=== PATIENT | male | born 2000 | race Caucasian/White ===

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

== ENCOUNTER 2022-02-24 16:29 | Emergency (ER) | payer OTHER, SELFPAY ==
[2022-02-24 16:42] VITALS: BP 122/86; PULSE 108; RESP 18; TEMP 36.9; O2SAT 98; BMI 27.3
[2022-02-24 17:54] LABS: Influenza A - CEPHEID Flu A NEGATIVE (NEGATIVE); Influenza B - CEPHEID Flu B NEGATIVE (NEGATIVE); Respiratory Syncytial Virus Negative (Negative)
[2022-02-24 17:55] LABS: COVID-19 CEPHEID 4-PLEX PCR Negative (Negative)
--- NOTE | 2022-02-24 19:32 | ED_ITS ---
HPI - Abdominal Pain General Chief Complaint: Abdominal Pain Stated Complaint: ABD pain, Dizzy Time Seen by Provider: 02/24/22 19:16 Source: patient Mode of arrival: Ambulatory History of Present Illness HPI narrative: Patient brought in from home by father. Complains of onset of right inguinal pain yesterday at 12:00 p.m.. He was seen by outside facility Hospital at 7:00 p.m. and had IV contrast CT which showed normal appendix, diverticulosis without diverticulitis. Paper form results were brought here. Patient states pain has been constant. Does not radiate. It is midway in the inguinal crease. No nausea vomiting diarrhea no urinary complaints no hematuria no dysuria. No prior abdominal surgical history Patient did have a fever. Today around noontime and 230 p.m. he had fever. He did take fever medication but none since then. He still does have an appetite. Related Data Allergies Allergy/AdvReac Type Severity Reaction Status Date / Time No Known Drug Allergies Allergy Verified 02/24/22 16:41 Review of Systems Review of Systems Narrative: GENERAL: negative chills, fatigue, malaise, positive fever, sweats. HEENT: negative sinus pain, ear pain, sore throat RESPIRATORY: negative dyspnea, cough CARDIOVASCULAR: negative chest pain, palpitations GASTROINTESTINAL: negative nausea, vomiting, positive abdominal pain : negative dysuria, frequency, hematuria MUSCULOSKELETAL: negative muscle or bony pain SKIN: negative rash, skin lesions NEUROLOGIC: negative weakness, numbness ROS Unobtainable: All systems reviewed & are unremarkable except as noted in HPI and below Patient History Medical History (Updated 02/24/22 @ 22:52 by Jose Antonio Grimm MD) Seizure Social History Smoking Status: Never smoker Smoking Status: Never smoker Substance Use Type: does not use Exam Narrative Exam Narrative: GENERAL: in no distress, not toxic not dyspneic HEAD: Normocephalic. EYES: Pupils equal round No scleral icterus. ENT: Mucous membranes moist. NECK: Trachea midline. CARDIOVASCULAR: Regular rate and rhythm without murmurs RESPIRATORY: Clear to auscultation. Breath sounds equal bilaterally. No wheezes, rales, or rhonchi. GASTROINTESTINAL: Abdomen soft, McBurney point nontender. No rebound tenderness no peritoneal signs. No pain with psoas maneuver. No pain out of proportion to exam. There is reproducible mid right inguinal crease tenderness but no palpable mass or lymphadenopathy, no overlying erythema or induration EXTREMITIES: No gross deformities. BACK: No flank tenderness. NEURO: AOx4. SKIN: Warm and dry PSYCH: Not anxious, is cooperative Initial Vital Signs Initial Vital Signs: Vital Signs Temperature 98.5 F 02/24/22 16:42 Pulse Rate 108 H 02/24/22 16:42 Respiratory Rate 18 02/24/22 16:42 Blood Pressure 122/86 02/24/22 16:42 Pulse Oximetry 98 02/24/22 16:42 Oxygen Delivery Method 02/24/22 16:42 Course Orders Ordered: ED Orders 02/24/22 20:20 Complete Blood Count AUTO DIFF Stat Comprehensive Metabolic Panel Stat 02/24/22 21:20 CT abdomen pelvis w con Stat Discontinued Medications Sodium Chloride (Normal Saline 0.9%) 1,000 mls @ 1,000 mls/hr IV BOLUS ONE Stop: 02/24/22 20:30 Last Infusion: 02/24/22 21:43 Dose: 0 mls/hr Documented By: Admin: 02/24/22 20:39 Dose: 1,000 mls/hr Documented By: CARISSA Vital Signs Vital signs: Vital Signs - 8 hr 02/24/22 16:42 Temperature 98.5 F Pulse Rate 108 H Respiratory Rate 18 Blood Pressure 122/86 Pulse Oximetry 98 Oxygen Delivery Method Room Air MDM - Abdominal Pain Lab Data Result diagrams: 02/24/22 20:20 02/24/22 20:20 Labs: Lab Results 02/24/22 02/24/22 02/24/22 Range/Units 16:48 20:20 20:20 WBC 6.4 (4.5-11.0) X10^3/uL RBC 4.85 (4.5-5.9) X10^6/uL Hgb 14.9 (13.5-17.5) g/dL Hct 43.3 (41-53) % MCV 89.3 (80-100) fL MCH 30.7 (26-34) PG MCHC 34.4 (30-36) % RDW 12.3 (11.6-14.8) % Plt Count 178 (150-400) X10^3/uL Neut % (Auto) 71.7 (50-75) % Lymph % (Auto) 16.0 L (25-40) % [place] % (Auto) 7.6 (3-14) % Eos % (Auto) 4.3 H (2-4) % Baso % (Auto) 0.4 (0-2) % Neut # (Auto) 4600 (9509-6151) /uL Lymph # (Auto) 1000 L (5369-3151) /uL [place] # (Auto) 500 (0-900) /uL Eos # (Auto) 300 (0-450) /uL Baso # (Auto) 0 (0-100) /uL Sodium 138 (137-145) mmol/L Potassium 3.7 (3.4-5.1) mmol/L Chloride 104 (98-107) mmol/L Carbon Dioxide 21 L (22-32) mmol/L BUN 7 L (9-20) mg/dL Creatinine 1.06 (0.66-1.25) mg/dL Estimated GFR > 60 (>60) mL/min BUN/Creatinine Ratio 6.6 (6-22) Glucose 83 (70-100) mg/dL Calcium 8.6 (8.4-10.2) mg/dL Total Bilirubin 0.6 (0.2-1.3) mg/dL AST 23 (17-59) IU/L ALT 31 (<50) IU/L Alkaline Phosphatase 108 (38-126) U/L Total Protein 7.2 (6.3-8.2) g/dL SARS-CoV-2 (PCR) Negative (Negative) Influenza A (RT-PCR) Flu a negative (NEGATIVE) Influenza B (RT-PCR) Flu b negative (NEGATIVE) RSV (PCR) Negative (Negative) Imaging Data CT scan - abdomen/pelvis: Radiologist's Impression: [address] [address] [address] Scan Report Signed Patient: Saurabh Peck MR#: [id number] : 2000 Acct:[id number] Age/Sex: 21 / M Date of Service: 02/24/22 Loc: ED Accession Number: [id number] ?? Procedure: CT abdomen pelvis w con Ordering Provider: Jose Antonio Grimm MD PROCEDURE:? CT ABDOMEN PELVIS W CON ? INDICATIONS:? IV contrast only/right lower quadrant pain ? TECHNIQUE:? After the administration of IV contrast, axial sections were acquired from the lung bases to the pubic symphysis.? Coronal and sagittal reformats were performed.? For radiation dose reduction, the following was used:? automated exposure control, adjustment of mA and/or kV according to patient size. ? COMPARISON:? None. ? FINDINGS:? Image quality:? Excellent.? ? Lung bases:? Unremarkable.? ? Heart:? Heart is normal in size. ? ? ABDOMEN: Liver:? No mass lesion. Gallbladder:? Within normal limits without calcified gallstones.? ? Biliary ducts:? No biliary ductal dilatation.? ? Pancreas:? Unremarkable.? ? Spleen:? Normal in size.? ? Adrenal Glands:? No adrenal nodules.? ? Kidneys and Ureters:? No hydronephrosis.? ? ? Stomach and Bowel:? Stomach, small bowel loops, and colon are normal in caliber and wall thickness.? The appendix is normal in appearance.? There is colonic diverticulosis without acute diverticulitis.? Peritoneum:? No abnormal intraperitoneal fluid.? No free air.? ? Ventral Wall: ? No hernia.? Abdominal Nodes:? No retroperitoneal or mesenteric adenopathy by size criteria.? Vessels:? Aorta and inferior vena cava are normal in size.? ? PELVIS: Pelvic Organs:? Unremarkable.? ? Bladder:? The urinary bladder is nondistended.? ? Pelvic Nodes: No enlarged lymph nodes.? Miscellaneous: No inguinal hernias are seen. ? ? ? Bones:? Visualized osseous structures demonstrate no suspicious focal lesions. ? IMPRESSION:? ? 1. No acute intra-abdominal abnormality.? Specifically, no evidence of acute appendicitis. ? 2. No evidence of obstructive uropathy.? ? ? Dictated by: Asa Marshall M.D. on 02/24/2022 at 22:38 ? ? Approved by: Asa Marshall M.D. on 02/24/2022 at 22:39 ? MDM Narrative Medical decision making narrative: Patient brought in from home by father. Complains of onset of right inguinal pain yesterday at 12:00 p.m.. He was seen by outside facility Hospital at 7:00 p.m. and had IV contrast CT which showed normal appendix, diverticulosis without diverticulitis. Paper form results were brought here. Patient states pain has been constant. Does not radiate. It is midway in the inguinal crease. No nausea vomiting diarrhea no urinary complaints no hematuria no dysuria. No prior abdominal surgical history After exam and history, CBC CMP urinalysis has been ordered. IV access as well. Viral swab was done and is negative. [facility] CC: Abdominal pain Complicating co-morbidities: None Data collected from: Patient and father Medical records reviewed: Discharge instructions as well as copy of CT results reviewed, paper form brought in by family, no acute appendicitis, diverticulosis without diverticulitis Differential considered: Includes but not limited to appendicitis/lymphadenopathy/hernia/diverticulitis/renal stone/UTI Exam documented above, pertinent findings include: Tender at mid right inguinal crease Lab Test results independently reviewed as above. Pertinent findings: CBC reviewed. No leukocytosis. CMP is reassuring as well Imaging studies independently reviewed: CT abdomen pelvis with IV contrast no acute process no appendicitis Treatments: IV fluids Re-evaluations: 9:21 p.m.. Reviewed CBC with patient and father. They do agree and would like repeat CT scan as possible yesterday's CT scan was then to early to show appendicitis. Discussion: I did review results with patient and father. Appropriate for discharge home at this time. Fever at this time unknown origin. However could be incidental viral infection. Patient did note he did strain his right groin when he fell the day before, 2 days ago and landed on his left shoulder. He states that his left shoulder hurt more in his right groin at this time he does not complain of left shoulder pain. However he could have strained his right groin when he slipped and fell, because he states he lost balance with his right foot. Return precautions reviewed with him and father. They did desire discharge home. Return precautions reviewed with him. Diagnosis: Inguinal pain Disposition: see below, along with detailed discharge instructions that have been reviewed with patient as well as indications for ED re-evaluation and additional outpatient follow up Discharge Plan Departure Patient Disposition: Home Clinical Impression: Rt inguinal pain Instructions: DI for Abdominal Pain-Adult Activity Restrictions/Additional Instructions: Call provided general surgery office tomorrow for office re-evaluation within a week. Return if worse if any questions or concerns. May continue ibuprofen or Tylenol for any fever or pain. Today's laboratory studies and CT scan imaging are reassuring. Your inguinal pain could be related to a developing hernia versus strained from your recent fall. Referrals: Mary Cadena MD [Physician] - Stand Alone Forms: Patient Portal/API
[2022-02-24] MEDS: SODIUM CHLORIDE 0.9% 1,000 ML 1000 ML IV (20:39)
[2022-02-24 20:54] LABS: Add Manual Diff / Slide Review NO; Basophils Absolute Auto 0 /uL (0-100); Basophils Percent Auto 0.4 % (0-2); Eosinophils Absolute Auto 300 /uL (0-450); Eosinophils Percent Auto 4.3 % (2-4); Hematocrit 43.3 % (41-53); Hemoglobin 14.9 g/dL (13.5-17.5); Lymphocytes Absolute Auto 1000 /uL (1100-4500); Mean Corpuscular HGB Conc 34.4 % (30-36); Mean Corpuscular Hemoglobin 30.7 PG (26-34); Mean Corpuscular Volume 89.3 fL (80-100); Monocytes Absolute Auto 500 /uL (0-900); Monocytes Percent Auto 7.6 % (3-14); Neutrophils Absolute Auto 4600 /uL (1500-7000); Neutrophils Percent Auto 71.7 % (50-75); Platelet Count 178 X10^3/uL (150-400); Red Blood Cell Count 4.85 X10^6/uL (4.5-5.9); Red Cell Distribution Width 12.3 % (11.6-14.8); White Blood Cell Count 6.4 X10^3/uL (4.5-11.0)
[2022-02-24 21:07] LABS: Alanine Aminotransferase 31 IU/L (<50); Alkaline Phosphatase 108 U/L (38-126); Aspartate Aminotransferase 23 IU/L (17-59); BUN Creatinine Ratio 6.6 (6-22); Bilirubin Total 0.6 mg/dL (0.2-1.3); Blood Urea Nitrogen 7 mg/dL (9-20); Calcium 8.6 mg/dL (8.4-10.2); Carbon Dioxide 21 mmol/L (22-32); Chloride 104 mmol/L (98-107); Estimated Glomerular Filt Rate > 60 mL/min (>60); Glucose 83 mg/dL (70-100); HEMOLYSIS < 15 (0-50); Potassium 3.7 mmol/L (3.4-5.1); Sodium 138 mmol/L (137-145); Total Protein 7.2 g/dL (6.3-8.2)
--- NOTE | 2022-02-24 21:20 | DI.CT.S_ITS ---
PROCEDURE: CT ABDOMEN PELVIS W CON INDICATIONS: IV contrast only/right lower quadrant pain TECHNIQUE: After the administration of IV contrast, axial sections were acquired from the lung bases to the pubic symphysis. Coronal and sagittal reformats were performed. For radiation dose reduction, the following was used: automated exposure control, adjustment of mA and/or kV according to patient size. COMPARISON: None. FINDINGS: Image quality: Excellent. Lung bases: Unremarkable. Heart: Heart is normal in size. ABDOMEN: Liver: No mass lesion. Gallbladder: Within normal limits without calcified gallstones. Biliary ducts: No biliary ductal dilatation. Pancreas: Unremarkable. Spleen: Normal in size. Adrenal Glands: No adrenal nodules. Kidneys and Ureters: No hydronephrosis. Stomach and Bowel: Stomach, small bowel loops, and colon are normal in caliber and wall thickness. The appendix is normal in appearance. There is colonic diverticulosis without acute diverticulitis. Peritoneum: No abnormal intraperitoneal fluid. No free air. Ventral Wall: No hernia. Abdominal Nodes: No retroperitoneal or mesenteric adenopathy by size criteria. Vessels: Aorta and inferior vena cava are normal in size. PELVIS: Pelvic Organs: Unremarkable. Bladder: The urinary bladder is nondistended. Pelvic Nodes: No enlarged lymph nodes. Miscellaneous: No inguinal hernias are seen. Bones: Visualized osseous structures demonstrate no suspicious focal lesions. IMPRESSION: 1. No acute intra-abdominal abnormality. Specifically, no evidence of acute appendicitis. 2. No evidence of obstructive uropathy. Dictated by: Asa Marshall M.D. on 02/24/2022 at 22:38 Approved by: Asa Marshall M.D. on 02/24/2022 at 22:39
[2022-02-26 16:24] LABS: Albumin 4.3 g/dL (3.5-5.0); Albumin Globulin Ratio 1.5 (1.0-2.8); Globulin 2.9 g/dL (1.7-4.1)
== END 2022-02-24 21:05 | disposition home or self-care (01) ==
PROVIDERS: Emergency Medicine; Emergency Provider Emergency Medicine
DX: R10.31 Right lower quadrant pain (principal); Z20.822 Contact with and (suspected) exposure to COVID-19
CPT/HCPCS: 0241U; 36415; 74177; 80053; 85025; 99284; Q9967